=== PATIENT | male | born 2000 | race African-American/Black ===

== ENCOUNTER 2020-12-26 10:19 | Emergency (ER) | payer BC ==
[2020-12-27 13:56] LABS: SARS-CoV-2 PCR by NAA Not Detected (NotDetected)
== END 2020-12-26 11:00 | disposition home or self-care (01) ==
LOC: MADERS 10:19
DX: J06.9 Acute upper respiratory infection, unspecified (principal); Z20.822 Contact with and (suspected) exposure to COVID-19
CPT/HCPCS: 99283; U0003; U0005